=== PATIENT | female | born 1970 | race Caucasian/White ===

== ENCOUNTER 2017-12-20 10:44 | Observation (INO) | payer MEDICARE, SELFPAY ==
[2017-12-20] VITALS (13 sets, daily range): BP systolic 112–147; BP diastolic 71–105; PULSE 66–85; RESP 13–20; TEMP 36.6–36.8; O2SAT 95–99; BMI 46.7; BMI 46.1
--- NOTE | 2017-12-20 10:59 | EKG12_ITS ---
Test Reason : CP Blood Pressure : / mmHG Vent. Rate : 079 BPM Atrial Rate : 079 BPM P-R Int : 164 ms QRS Dur : 094 ms QT Int : 394 ms P-R-T Axes : 053 042 073 degrees QTc Int : 451 ms Normal sinus rhythm Biatrial enlargement Abnormal ECG Confirmed by MERCEDES RINALDI, GLENDY ([id number]), assistant film editor SAPPHIRE JIMÉNEZ ([id number]) on 12/21/2017 3:19:12 PM Referred By: FELIPE/KAYLA Confirmed By:GLENDY LONG MD
--- NOTE | 2017-12-20 11:07 | RAD_ITS ---
STUDY: X-RAY CHEST REASON FOR EXAM: Female, 47 years old. Chest pain. TECHNIQUE: Single AP portable view of the chest. COMPARISON: Comparison is made with prior study dated August 16, 2017. FINDINGS: EKG electrodes are seen. Scattered calcified granulomas. There is prominence of the left first costochondral junction. A small nodule at that level cannot be excluded. There is no demonstrated pleural abnormality. Normal size heart. Normal mediastinum and mitch. Normal visualized pulmonary arteries. Normal visualized aortic arch and descending thoracic aorta. Normal visualized thoracic spine. Normal visualized ribs, clavicles, and shoulders. There is no demonstrated abnormality of the visualized soft tissue structures of the upper abdomen. RAD/Chest 1 View (Portable) IMPRESSION: No acute abnormality is seen. There is prominence of the left first costochondral junction. A repeat radiograph in the lordotic position is recommended. Electronically Signed: Denton Philippe MD at 12:12 EDT Tel [phone], Service support ,
[2017-12-20 11:20] LABS: Absolute Lymphocyte Count 1.78 X10^3/ul (0.83-4.51); Absolute Neutrophil Count 4.6 X10^3/uL (2.0-7.7); Basophil# 0.06 X10^3/uL; Basophil% 0.8 % (0-1); Eosinophil# 0.59 X10^3/uL; Eosinophils% 7.7 % (0-5); Hematocrit 38.5 % (37-47); Hemoglobin 13.4 g/dl (12.0-15.0); Lymphocyte # 1.78 X10^3/ul (4.0); Lymphocyte % 23.4 % (19-41); Mean Corp Hgb Conc 34.8 g/gl (32-36); Mean Corpuscular Hgb 31.8 pg (27.0-32.0); Mean Corpuscular Volume 91.2 fL (81-99); Mean Platelet Vol. 9.4 fl (6.2-12.0); Monocyte# 0.52 X10^3/uL; Monocyte% 6.8 % (0-10); Neutrophil # 4.64 X10^3/uL (2.7-7.7); Neutrophil % 60.9 % (47-70); POSITIVE COUNT NO; POSITIVE DIFFERENTIAL NO; POSITIVE MORPHOLOGY NO; Platelet Count 311 K/mm3 (150-450); RBC Distribution Width CV 11.9 % (11.6-14.6); RBC Distribution Width SD 38.8 fl (35.1-43.9); Red Blood Count 4.22 M/mm3 (4.2-5.4); White Blood Count 7.6 K/mm3 (4.4-11.0)
[2017-12-20 11:33] LABS: Anion Gap 6 (5-15); BUN 20 mg/dL (7-18); Calcium,Total 8.8 mg/dL (8.5-10.1); Chloride 109 mmol/L (98-107); Creatinine, Serum 1.11 mg/dL (0.55-1.02); EST Glomerular Filtration Rate 56 mL/min (>60); Est Glom Filt Rate - Afr Amer 67 mL/min (>60); Estimated Creatinine Clearance 69.28 ml/min; Glucose 88 mg/dL (74-106); Potassium 3.8 mmol/L (3.5-5.1); Sodium Level 143 mmol/L (136-145)
--- NOTE | 2017-12-20 11:37 | ED.VISSUMM ---
- ER Visit Summary Date of Service: 12/20/17 Chief Complaint: Chest pain History of Present Illness: The patient is a 47 F presenting with chest pain. Pain started around 10 AM. She was in a car when this started. She had pain midsternal going to her back. This lasted probably 30 minutes. She has mild pain now but it has improved. She has nausea, shortness of breath. 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 Lemus. She does not have these results. These tests were ordered for frequent PVCs. She is a smoker. She has a remote history of thyroid cancer. No other PE/DVT risk factors. Physical Examination: Vitals are stable. Patient is afebrile. Alert no acute distress. HEENT exam is unremarkable. Neck is supple. Lungs are clear and equal bilaterally. Heart is regular rate and rhythm. Abdomen is soft nontender nondistended. Extremities are unremarkable. Skin is warm and dry. No focal neurologic deficit. Remainder of exam is unremarkable. Emergency Department Course and Treatment: Patient was given aspirin. EKG is sinus rate is 79 with no acute ischemic changes. CBC, chemistries unremarkable other than creatinine 1.11. Troponin is negative. D-dimer is normal. Chest x-ray shows no acute process. She is chest pain-free on reevaluation. Will discuss with the hospitalist for observation. Disposition: Observation Impression: Chest pain This note was generated with [employer] dictation software. It may contain incorrect words, spelling, and punctuation that were not noted in review of the chart prior to signing ED Disposition - Plan for ED Patient: Chief Complaint: Chest Pain Referrals: Umair Gates, CRYS-C [Primary Care Provider] -
[2017-12-20] MEDS: Aspirin 325 MG Tablet PO (11:46)
[2017-12-20 12:00] LABS: D-Dimer Quantitative (DVT/PE) 0.41 FEU/ug/m (0.27-0.49)
--- NOTE | 2017-12-20 15:25 | PCM.HP.STD ---
<Aida Dan - Last Filed: 12/20/17 16:06> Problem List (1) Anxiety disorder Status: Chronic (2) Bipolar disorder Status: Chronic (3) Asthma Status: Chronic (4) Hypothyroidism Status: Chronic (5) Chest pain Status: Acute (6) Morbid obesity with BMI of 45.0-49.9, adult Status: Chronic History of Present Illness Date of Admission: 12/20/17 Chief Complaint: Chest pain The patient is a 47 year old F who presents to the emergency room with chest pain. Patient states she was driving to [place] earlier today when she developed sudden substernal chest pain which radiated to her back. She denies radiation of pain to arm or neck. She states pain was severe and sharp in nature, generalized to the entire chest area. She reports associated shortness of breath. Denies diaphoresis, dizziness, lightheadedness. She states she has never had this sensation before. Patient states pain was constant and resolved around the time she arrived to the emergency room. She was given aspirin in the emergency room. She did not receive nitro or other pain medication. Patient states she has a history of panic attacks and this did not feel like a panic attack. She states she is undergoing workup for palpitations. She had a recent echo in 48 hour Holter monitor which she has not had a follow-up appointment to learn results. She denies any prior cardiac history. She has never had a stress test. She denies any family history of heart disease. She quit smoking approximately 4 weeks ago but states prior to that she smoked fairly heavily for over 20 years. Patient's chronic medical history includes severe anxiety disorder, bipolar disorder, asthma, hypothyroidism status post thyroidectomy secondary to thyroid cancer, morbid obesity. Past Medical History Past Medical History (Chronic Problems): Chronic Problems Anxiety disorder (Chronic) Bipolar disorder (Chronic) Asthma (Chronic) Hypothyroidism (Chronic) Morbid obesity with BMI of 45.0-49.9, adult (Chronic) Allergies No Known Allergies Allergy (Verified 12/20/17 10:45) Home Medications: Ambulatory Orders Medication Instructions Recorded ALPRAZolam [Xanax] 1 mg PO BID 04/07/16 Calcitriol [Rocaltrol] 0.5 mcg PO BID 04/07/16 Carbamazepine [Tegretol] 600 mg PO BID 04/07/16 Levothyroxine Sodium [Synthroid] 200 mcg PO SUTUTH 04/07/16 Levothyroxine Sodium [Synthroid] 300 mcg PO MOWEFRSA 04/07/16 [place] Carbonate [[place] 675 mg PO Q12H 04/07/16 Carbonate ER] Olanzapine [Zyprexa] 15 mg PO QHS 04/07/16 Paroxetine HCl [Paxil] 40 mg PO QHS 04/07/16 buPROPion SR [Wellbutrin Sr] 150 mg PO DAILY 04/07/16 Albuterol Inhaler [Ventolin Hfa] 1 - 2 puff INHALATION Q4H PRN PRN 08/16/17 #1 inhaler Cholecalciferol (Vitamin D3) 2,000 unit PO DAILY 12/20/17 [Vitamin D3] Surgical History: arthroscopy, knee - Left, cholecystectomy, - - Thyroidectomy right ankle surgery following traumatic injury Psychiatric History: Anxiety, Bipolar 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 Denies: Edema, Light Headedness, Syncope Respiratory: Denies: Cough, Shortness of breath at rest, Sputum production Gastrointestinal: Denies: Abdominal Pain, Nausea, Vomiting Genitourinary: Denies: Dysuria Musculoskeletal: Denies: Joint Pain, Joint Tenderness Skin: Denies: Rash, Wounds Neurological: Denies: Numbness, Tingling, Focal weakness Psychiatric: Reports: Anxiety Hematologic/ Lymphatic: Denies: Easy Bruising, Easy Bleeding VTE Information - Inpt Only VTE Present on Admission: No VTE Mechan Device Prophylaxis: None VTE Pharm Prophylaxis ordered?: Yes Patient Problems: Active and Suspected Problems Chest pain (Acute) - Physical Exam General: Alert, Oriented x3, Cooperative, No apparent distress HEENT: Atraumatic, PERRLA, EOMI, Normocephalic Neck: Supple, No JVD, Negative Carotid Bruits Lungs: Clear to auscultation, Diminished Cardiovascular: Regular rate, Regular Rhythm, Normal S1, Normal S2, No murmurs Abdomen: Bowel Sounds Present, Soft, Non Tender, Non-Distended, Obese Extremities: No clubbing, No cyanosis, No edema, Capillary Refill Less than 3 Seconds Skin: No rashes, No breakdown Musculoskeletal: No Tenderness to Palpation of Joints or Extremities Neurological: Cranial nerves II-XII grossly intact, Neuro grossly intact Psych/Mental Status: Normal Affect, Appropriate Vital Signs Temp Pulse Resp BP Pulse Ox 97.8 F 85 16 112/71 98 12/20/17 13:30 12/20/17 15:00 12/20/17 13:30 12/20/17 13:30 12/20/17 13:39 Oxygen Delivery Method Room Air Weight: 150.2 kg Body Mass Index (BMI) 46.1 Laboratory Tests Past 24 Hrs 12/20/17 13:40 Troponin I < 0.02 Assessment/Plan Active and Suspected Problems Chest pain (Acute) 1. Chest pain-rule out ACS. EKG in ER without evidence of ischemia. Troponin negative ?2. Trend enzymes. Patient received 325 mg aspirin in ER. Continue aspirin 81 mg daily. Obtain stress echo. Patient had recent echocardiogram and 48 hour Holter monitor at home and [place] facility. Request records. 2. Hypothyroidism-status post thyroidectomy secondary to history of thyroid cancer. Continue home Synthroid, Calcitriol regimen. 3. Anxiety disorder/bipolar disorder-continue home regimen. 4. Mild intermittent asthma-albuterol aerosol as needed for shortness of breath. 5. Morbid obesity-diet and lifestyle modifications encouraged. Nutrition consult. DVT prophylaxis-Lovenox subcu. This patient was seen by ROGERS Luciano under the supervision of Dr. Kelley. <Giovanni Kelley - Last Filed: 12/20/17 17:36> Problem List (1) Anxiety disorder Status: Chronic (2) Bipolar disorder Status: Chronic (3) Asthma Status: Chronic (4) Hypothyroidism Status: Chronic (5) Chest pain Status: Acute (6) Morbid obesity with BMI of 45.0-49.9, adult Status: Chronic History of Present Illness The patient is a 47 year old F who had chest pain today while driving to [place]. Patient stated began in her back and rated up to her front. Patient became very anxious and drove herself to [facility]. In the emergency room patient had a workup that was negative so far. Patient's chest pain resolved spontaneously. Patient has had chest pain related with panic attacks before. Usually patient has some something that incites her panic but denies anything that incited her panic today. She does know that she was concerned about traffic but there was any traffic at that time when this occurred and pain that she felt was different than when she has had panic attacks before. She did note afterwards, however, she did note some acid brash in the back of her throat. 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 Denies: Edema, Light Headedness, Syncope Respiratory: Denies: Cough, Shortness of breath at rest, Sputum production Gastrointestinal: Denies: Abdominal Pain, Nausea, Vomiting Genitourinary: Denies: Dysuria Musculoskeletal: Denies: Joint Pain, Joint Tenderness Skin: Denies: Rash, Wounds Neurological: Denies: Focal weakness, Numbness, Tingling Hematologic/ Lymphatic: Denies: Easy Bruising, Easy Bleeding VTE Information - Inpt Only VTE Present on Admission: No VTE Pharm Prophylaxis ordered?: Yes - Physical Exam General: Alert, Cooperative, No apparent distress HEENT: Atraumatic, Normocephalic Neck: No Nodes, Thyroid Normal Size and Texture Lungs: Clear to auscultation, Normal air movement, No rhonchi, No wheeze Cardiovascular: Regular rate, Regular Rhythm, Normal S1, Normal S2, No murmurs Abdomen: Bowel Sounds Present, Soft, Non Tender, Non-Distended Extremities: No edema, No Calf Tenderness Skin: No rashes, No breakdown Musculoskeletal: No Tenderness to Palpation of Joints or Extremities, No Muscle Wasting Psych/Mental Status: Normal Affect, Appropriate Vital Signs Temp Pulse Resp BP Pulse Ox 36.6 C 85 16 112/71 98 12/20/17 13:30 12/20/17 15:00 12/20/17 13:30 12/20/17 13:30 12/20/17 13:39 Oxygen Delivery Method Room Air Weight: 150.2 kg Body Mass Index (BMI) 46.1 Laboratory Tests Past 24 Hrs 12/20/17 12/20/17 13:40 16:14 Troponin I < 0.02 < 0.02 Assessment/Plan She seen and examined in family. Agree the above note by the nurse practitioner. 1. Chest pain: Atypical. Rule out cardiac with a stress test. I suspect this may be more esophageal spasm. Patient said that she had reflux one her son was a child and he is now a teenager. I do not necessarily recommend treatment for the reflux unless he becomes more frequent. If stress test is negative then anticipate patient being able to be discharged home. Code Visit OBSV E&M: 06662 Initial observation care L2
--- NOTE | 2017-12-20 15:39 | HP.PCM_ITS ---
Addendum entered and electronically signed by ROGERS Luciano 12/20/17 16:07: Code Visit Additional diagnoses: Mild elevated creatinine-creatinine admission 1.1. Patient's baseline is 1.0. Monitor BMP. Estimated GFR 56. Suspect some element of chronic kidney disease. Original Note: <Aida Dan - Last Filed: 12/20/17 16:06> Problem List (1) Anxiety disorder Status: Chronic (2) Bipolar disorder Status: Chronic (3) Asthma Status: Chronic (4) Hypothyroidism Status: Chronic (5) Chest pain Status: Acute (6) Morbid obesity with BMI of 45.0-49.9, adult Status: Chronic History of Present Illness Date of Admission: 12/20/17 Chief Complaint: Chest pain The patient is a 47 year old F who presents to the emergency room with chest pain. Patient states she was driving to [place] earlier today when she developed sudden substernal chest pain which radiated to her back. She denies radiation of pain to arm or neck. She states pain was severe and sharp in nature, generalized to the entire chest area. She reports associated shortness of breath. Denies diaphoresis, dizziness, lightheadedness. She states she has never had this sensation before. Patient states pain was constant and resolved around the time she arrived to the emergency room. She was given aspirin in the emergency room. She did not receive nitro or other pain medication. Patient states she has a history of panic attacks and this did not feel like a panic attack. She states she is undergoing workup for palpitations. She had a recent echo in 48 hour Holter monitor which she has not had a follow-up appointment to learn results. She denies any prior cardiac history. She has never had a stress test. She denies any family history of heart disease. She quit smoking approximately 4 weeks ago but states prior to that she smoked fairly heavily for over 20 years. Patient's chronic medical history includes severe anxiety disorder, bipolar disorder, asthma, hypothyroidism status post thyroidectomy secondary to thyroid cancer, morbid obesity. Past Medical History Past Medical History (Chronic Problems): Chronic Problems Anxiety disorder (Chronic) Bipolar disorder (Chronic) Asthma (Chronic) Hypothyroidism (Chronic) Morbid obesity with BMI of 45.0-49.9, adult (Chronic) Allergies No Known Allergies Allergy (Verified 12/20/17 10:45) Home Medications: Ambulatory Orders Medication Instructions Recorded ALPRAZolam [Xanax] 1 mg PO BID 04/07/16 Calcitriol [Rocaltrol] 0.5 mcg PO BID 04/07/16 Carbamazepine [Tegretol] 600 mg PO BID 04/07/16 Levothyroxine Sodium [Synthroid] 200 mcg PO SUTUTH 04/07/16 Levothyroxine Sodium [Synthroid] 300 mcg PO MOWEFRSA 04/07/16 [place] Carbonate [[place] 675 mg PO Q12H 04/07/16 Carbonate ER] Olanzapine [Zyprexa] 15 mg PO QHS 04/07/16 Paroxetine HCl [Paxil] 40 mg PO QHS 04/07/16 buPROPion SR [Wellbutrin Sr] 150 mg PO DAILY 04/07/16 Albuterol Inhaler [Ventolin Hfa] 1 - 2 puff INHALATION Q4H PRN PRN 08/16/17 #1 inhaler Cholecalciferol (Vitamin D3) 2,000 unit PO DAILY 12/20/17 [Vitamin D3] Surgical History: arthroscopy, knee - Left, cholecystectomy, - - Thyroidectomy right ankle surgery following traumatic injury Psychiatric History: Anxiety, Bipolar 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 Denies: Edema, Light Headedness, Syncope Respiratory: Denies: Cough, Shortness of breath at rest, Sputum production Gastrointestinal: Denies: Abdominal Pain, Nausea, Vomiting Genitourinary: Denies: Dysuria Musculoskeletal: Denies: Joint Pain, Joint Tenderness Skin: Denies: Rash, Wounds Neurological: Denies: Numbness, Tingling, Focal weakness Psychiatric: Reports: Anxiety Hematologic/ Lymphatic: Denies: Easy Bruising, Easy Bleeding VTE Information - Inpt Only VTE Present on Admission: No VTE Mechan Device Prophylaxis: None VTE Pharm Prophylaxis ordered?: Yes Patient Problems: Active and Suspected Problems Chest pain (Acute) - Physical Exam General: Alert, Oriented x3, Cooperative, No apparent distress HEENT: Atraumatic, PERRLA, EOMI, Normocephalic Neck: Supple, No JVD, Negative Carotid Bruits Lungs: Clear to auscultation, Diminished Cardiovascular: Regular rate, Regular Rhythm, Normal S1, Normal S2, No murmurs Abdomen: Bowel Sounds Present, Soft, Non Tender, Non-Distended, Obese Extremities: No clubbing, No cyanosis, No edema, Capillary Refill Less than 3 Seconds Skin: No rashes, No breakdown Musculoskeletal: No Tenderness to Palpation of Joints or Extremities Neurological: Cranial nerves II-XII grossly intact, Neuro grossly intact Psych/Mental Status: Normal Affect, Appropriate Vital Signs Temp Pulse Resp BP Pulse Ox 97.8 F 85 16 112/71 98 12/20/17 13:30 12/20/17 15:00 12/20/17 13:30 12/20/17 13:30 12/20/17 13:39 Oxygen Delivery Method Room Air Weight: 150.2 kg Body Mass Index (BMI) 46.1 Laboratory Tests Past 24 Hrs 12/20/17 13:40 Troponin I < 0.02 Assessment/Plan Active and Suspected Problems Chest pain (Acute) 1. Chest pain-rule out ACS. EKG in ER without evidence of ischemia. Troponin negative ?2. Trend enzymes. Patient received 325 mg aspirin in ER. Continue aspirin 81 mg daily. Obtain stress echo. Patient had recent echocardiogram and 48 hour Holter monitor at home and [place] facility. Request records. 2. Hypothyroidism-status post thyroidectomy secondary to history of thyroid cancer. Continue home Synthroid, Calcitriol regimen. 3. Anxiety disorder/bipolar disorder-continue home regimen. 4. Mild intermittent asthma-albuterol aerosol as needed for shortness of breath. 5. Morbid obesity-diet and lifestyle modifications encouraged. Nutrition consult. DVT prophylaxis-Lovenox subcu. This patient was seen by ROGERS Luciano under the supervision of Dr. Kelley. <Giovanni Kelley - Last Filed: 12/20/17 17:36> Problem List (1) Anxiety disorder Status: Chronic (2) Bipolar disorder Status: Chronic (3) Asthma Status: Chronic (4) Hypothyroidism Status: Chronic (5) Chest pain Status: Acute (6) Morbid obesity with BMI of 45.0-49.9, adult Status: Chronic History of Present Illness The patient is a 47 year old F who had chest pain today while driving to [place]. Patient stated began in her back and rated up to her front. Patient became very anxious and drove herself to [facility]. In the emergency room patient had a workup that was negative so far. Patient's chest pain resolved spontaneously. Patient has had chest pain related with panic attacks before. Usually patient has some something that incites her panic but denies anything that incited her panic today. She does know that she was concerned about traffic but there was any traffic at that time when this occurred and pain that she felt was different than when she has had panic attacks before. She did note afterwards, however, she did note some acid brash in the back of her throat. 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 Denies: Edema, Light Headedness, Syncope Respiratory: Denies: Cough, Shortness of breath at rest, Sputum production Gastrointestinal: Denies: Abdominal Pain, Nausea, Vomiting Genitourinary: Denies: Dysuria Musculoskeletal: Denies: Joint Pain, Joint Tenderness Skin: Denies: Rash, Wounds Neurological: Denies: Focal weakness, Numbness, Tingling Hematologic/ Lymphatic: Denies: Easy Bruising, Easy Bleeding VTE Information - Inpt Only VTE Present on Admission: No VTE Pharm Prophylaxis ordered?: Yes - Physical Exam General: Alert, Cooperative, No apparent distress HEENT: Atraumatic, Normocephalic Neck: No Nodes, Thyroid Normal Size and Texture Lungs: Clear to auscultation, Normal air movement, No rhonchi, No wheeze Cardiovascular: Regular rate, Regular Rhythm, Normal S1, Normal S2, No murmurs Abdomen: Bowel Sounds Present, Soft, Non Tender, Non-Distended Extremities: No edema, No Calf Tenderness Skin: No rashes, No breakdown Musculoskeletal: No Tenderness to Palpation of Joints or Extremities, No Muscle Wasting Psych/Mental Status: Normal Affect, Appropriate Vital Signs Temp Pulse Resp BP Pulse Ox 36.6 C 85 16 112/71 98 12/20/17 13:30 12/20/17 15:00 12/20/17 13:30 12/20/17 13:30 12/20/17 13:39 Oxygen Delivery Method Room Air Weight: 150.2 kg Body Mass Index (BMI) 46.1 Laboratory Tests Past 24 Hrs 12/20/17 12/20/17 13:40 16:14 Troponin I < 0.02 < 0.02 Assessment/Plan She seen and examined in family. Agree the above note by the nurse practitioner. 1. Chest pain: Atypical. Rule out cardiac with a stress test. I suspect this may be more esophageal spasm. Patient said that she had reflux one her son was a child and he is now a teenager. I do not necessarily recommend treatment for the reflux unless he becomes more frequent. If stress test is negative then anticipate patient being able to be discharged home. Code Visit OBSV E&M: 89390 Initial observation care L2
[2017-12-20] MEDS: OLANZapine 10 MG Tablet PO (21:27)
[2017-12-20] MEDS: PARoxetine 10 MG Tablet 40 MG PO (21:28)
[2017-12-20] MEDS: Calcitriol 0.25 MCG Capsule 0.5 MCG PO (21:28)
[2017-12-20] MEDS: carBAMazepine 200 MG Tablet 400 MG PO (21:28)
[2017-12-20] MEDS: Polyethylene Glycol 3350 17 GM PACKET PO (21:35)
[2017-12-20] MEDS: 0.9% NaCl Peripheral Flush Adult/Peds IV (21:37)
[2017-12-21] VITALS (7 sets, daily range): BP systolic 126–156; BP diastolic 68–99; PULSE 62–83; RESP 14–20; TEMP 36.6–36.9; O2SAT 94–99
[2017-12-21] MEDS: ALPRAZolam 0.5 MG Tablet 1 MG PO (03:37)
--- NOTE | 2017-12-21 05:55 | STEWCON_ITS ---
Reason For Study: Chest pain Stress Results Protocol: Stress Echocardiogram Maximum Predicted HR: 172 bpm Target HR: 146 bpm% Maximum Pr edicted HR: 81 % DurationHeart Rate Stage (mm:ss) (bpm) BPCom ment BASELINE 85 125/86 DEFINITY 2 ML DILUTED USED DURING STRESS EZEQUIEL PROTOCOL- STAGE 1 3:00 12 2 130/84 EZEQUIEL PROTOCOL- STAGE 2 3:00 14 0 150/90 RECOVERY 93 136/90 Stress Duration: 6:00 mm:ss Maximum Stress HR: 140 bpmM ETS: 7 Baseline Echocardiogram Findings Stress Echo Wall motion Data Resting WMIntermediate WMStress WM Resting Wall Motion Wall Motion Stress All segments Normal. All segments Hyperkinetic. Ejection Fraction 55 %. Ejection Fraction 70 %. Stress Results Heart rate response: technically inadequate (%PMHR < 85%) Blood pressure response: normal resting BP - appropriate response Arrhythmias: occcasional PVCs pretest, frequent PVCs during exercise, occasional PVCs in recovery; intermittent ventricular bigeminey during exercise and recovery; intermittent ventricular trigeminey / quadrageminey during recovery Functional capacity: average Stopped secondary to: dyspnea. EKG Data Baseline ECG: NSR; occasional PVCs. Peak exercise ECG: no obvious ECG changes. Symptoms with Stress No c/o chest discomfort during exercise / recovery. Interpretation Summary The study was technically difficult. Contrast injection was performed. Negative (technically inadequate: %PMHR < 85%) Stress Echocardiogram Ordering Physician: Giovanni Kelley Referring Physician: Umair Gates NP Performed By: Patsy Davis RDCS
--- NOTE | 2017-12-21 05:55 | EKG12_ITS ---
Test Reason : AM EKG Blood Pressure : / mmHG Vent. Rate : 093 BPM Atrial Rate : 093 BPM P-R Int : 168 ms QRS Dur : 092 ms QT Int : 366 ms P-R-T Axes : 054 027 072 degrees QTc Int : 455 ms Sinus rhythm with frequent Premature ventricular complexes in a pattern of bigeminy Biatrial enlargement Abnormal ECG When compared with ECG of 20-DEC-2017 10:51, MANUAL COMPARISON REQUIRED, DATA IS UNCONFIRMED Confirmed by MERRICK AGEE ([id number]), proposal editor SAPPHIRE JIMÉNEZ ([id number]) on 12/23/2017 3:18:04 PM Referred By: DR MADRIGAL Confirmed By:MERRICK AGEE
[2017-12-21 06:00] LABS: Absolute Lymphocyte Count 1.78 X10^3/ul (0.83-4.51); Absolute Neutrophil Count 6.1 X10^3/uL (2.0-7.7); Basophil# 0.04 X10^3/uL; Basophil% 0.4 % (0-1); Eosinophil# 0.63 X10^3/uL; Eosinophils% 6.9 % (0-5); Hematocrit 42.1 % (37-47); Lymphocyte # 1.78 X10^3/ul (4.0); Lymphocyte % 19.5 % (19-41); Mean Corp Hgb Conc 33.3 g/gl (32-36); Mean Corpuscular Hgb 30.2 pg (27.0-32.0); Mean Corpuscular Volume 90.7 fL (81-99); Mean Platelet Vol. 9.4 fl (6.2-12.0); Monocyte# 0.56 X10^3/uL; Monocyte% 6.1 % (0-10); Neutrophil # 6.08 X10^3/uL (2.7-7.7); Neutrophil % 66.7 % (47-70); Platelet Count 300 K/mm3 (150-450); RBC Distribution Width CV 12.4 % (11.6-14.6); RBC Distribution Width SD 40.6 fl (35.1-43.9); Red Blood Count 4.64 M/mm3 (4.2-5.4); White Blood Count 9.1 K/mm3 (4.4-11.0)
[2017-12-21 06:07] LABS: Prothrombin Time (Protime)PT. 12.7 SECONDS (11.7-14.9)
[2017-12-21 06:08] LABS: Partial Thromboplast Time 30.5 Seconds (24.1-36.2)
[2017-12-21] MEDS: Aspirin E.C. 81 MG Tablet PO (06:08)
[2017-12-21 06:09] LABS: POSITIVE COUNT NO; POSITIVE DIFFERENTIAL NO; POSITIVE MORPHOLOGY NO
[2017-12-21] MEDS: Levothyroxine 100 MCG Tablet 200 MCG PO (06:09)
[2017-12-21 06:13] LABS: Anion Gap 7 (5-15); BUN 19 mg/dL (7-18); BUN/Creat Ratio 17.3 RATIO (10-20); Calcium,Total 9.1 mg/dL (8.5-10.1); Chloride 109 mmol/L (98-107); EST Glomerular Filtration Rate 56 mL/min (>60); Est Glom Filt Rate - Afr Amer 68 mL/min (>60); Estimated Creatinine Clearance 69.91 ml/min; Glucose 108 mg/dL (74-106); Potassium 3.9 mmol/L (3.5-5.1); Sodium Level 143 mmol/L (136-145)
[2017-12-21] MEDS: Polyethylene Glycol 3350 17 GM PACKET PO (11:06)
[2017-12-21] MEDS: Calcitriol 0.25 MCG Capsule 0.5 MCG PO (11:06)
[2017-12-21] MEDS: carBAMazepine 200 MG Tablet 600 MG PO (11:07)
[2017-12-21] MEDS: buPROPion (SR) 150 MG Tablet.SA PO (11:07)
--- NOTE | 2017-12-21 13:11 | PCM.DC ---
- Discharge Diagnoses Current Active Problems: Current Active and Chronic Problems Anxiety disorder (Chronic) Bipolar disorder (Chronic) Asthma (Chronic) Hypothyroidism (Chronic) Chest pain (Acute) Morbid obesity with BMI of 45.0-49.9, adult (Chronic) You will use the following diet at home:: Calorie/Carbohydrate Controlled (specify 1200, 1400, etc), Cardiac Discharge Activity: Return to Normal Activity Call your doctor if you observe: Shortness of breath, Dizziness, Fainting spells, Chest pain, Increased palpitations (irregular heartbeat) Allergies/Adverse Reactions: Allergies No Known Allergies Allergy (Verified 12/20/17 10:45) Medications to take at Discharge ALPRAZolam [Xanax] 1 mg PO BID 04/07/16 Calcitriol [Rocaltrol] 0.5 mcg PO BID 04/07/16 Carbamazepine [Tegretol] 600 mg PO BID 04/07/16 Levothyroxine Sodium [Synthroid] 200 mcg PO SUTUTH 04/07/16 Levothyroxine Sodium [Synthroid] 300 mcg PO MOWEFRSA 04/07/16 [place] Carbonate [[place] Carbonate ER] 675 mg PO Q12H 04/07/16 Olanzapine [Zyprexa] 15 mg PO QHS 04/07/16 Paroxetine HCl [Paxil] 40 mg PO QHS 04/07/16 buPROPion SR [Wellbutrin SR (150mg tablets)] 150 mg PO DAILY 04/07/16 Albuterol Inhaler [Ventolin Hfa] 1 - 2 puff INHALATION Q4H PRN PRN #1 inhaler 08/16/17 Cholecalciferol (Vitamin D3) [Vitamin D3] 2,000 unit PO DAILY 12/20/17 Primary Care Physician: Umair Gates NP-C [Primary Care Provider] - Please follow up with your Primary Care Physician in: 1 Week Proposed Discharge Date: 12/21/17
--- NOTE | 2017-12-21 13:14 | DCINST_ITS ---
- Discharge Diagnoses Current Active Problems: Current Active and Chronic Problems Anxiety disorder (Chronic) Bipolar disorder (Chronic) Asthma (Chronic) Hypothyroidism (Chronic) Chest pain (Acute) Morbid obesity with BMI of 45.0-49.9, adult (Chronic) You will use the following diet at home:: Calorie/Carbohydrate Controlled ( specify 1200, 1400, etc), Cardiac Discharge Activity: Return to Normal Activity Call your doctor if you observe: Shortness of breath, Dizziness, Fainting spells , Chest pain, Increased palpitations (irregular heartbeat) Allergies/Adverse Reactions: Allergies No Known Allergies Allergy (Verified 12/20/17 10:45) Medications to take at Discharge ALPRAZolam [Xanax] 1 mg PO BID 04/07/16 Calcitriol [Rocaltrol] 0.5 mcg PO BID 04/07/16 Carbamazepine [Tegretol] 600 mg PO BID 04/07/16 Levothyroxine Sodium [Synthroid] 200 mcg PO SUTUTH 04/07/16 Levothyroxine Sodium [Synthroid] 300 mcg PO MOWEFRSA 04/07/16 [place] Carbonate [[place] Carbonate ER] 675 mg PO Q12H 04/07/16 Olanzapine [Zyprexa] 15 mg PO QHS 04/07/16 Paroxetine HCl [Paxil] 40 mg PO QHS 04/07/16 buPROPion SR [Wellbutrin SR (150mg tablets)] 150 mg PO DAILY 04/07/16 Albuterol Inhaler [Ventolin Hfa] 1 - 2 puff INHALATION Q4H PRN PRN #1 inhaler Cholecalciferol (Vitamin D3) [Vitamin D3] 2,000 unit PO DAILY 12/20/17 Primary Care Physician: Umair Gates NP-C [Primary Care Provider] - Please follow up with your Primary Care Physician in: 1 Week Proposed Discharge Date: 12/21/17
--- NOTE | 2017-12-21 13:14 | PCM.DC.SUM ---
<Aida Dan - Last Filed: 12/21/17 13:42> Discharge Date and Diagnosis Date of Admission: 12/20/17 Date of Discharge: 12/21/17 - Primary Discharge Diagnosis Active and Suspected Problems 1. Chest pain- ACS ruled out. - Secondary Discharge Diagnosis Chronic Problems Anxiety disorder (Chronic) Bipolar disorder (Chronic) Asthma (Chronic) Hypothyroidism (Chronic) Morbid obesity with BMI of 45.0-49.9, adult (Chronic) Hospital Course and Treatment Imaging Results: Diagnostic Data Chest X-Ray 12/20/17 11:07 IMPRESSION: No acute abnormality is seen. There is prominence of the left first costochondral junction. A repeat radiograph in the lordotic position is recommended. Electronically Signed: Denton Philippe MD at 12:12 EDT Tel [phone], Service support , Operations: None Procedures: - - Stress echo Summary of Care Provided: Patient is a 47-year-old female admitted 12/20/17 due to chest pain. Patient's chronic medical history includes severe anxiety disorder, bipolar disorder, asthma, hypothyroidism status post thyroidectomy secondary to thyroid cancer, morbid obesity. 1. Chest pain-ACS ruled out. EKG in ER without evidence of ischemia. Troponin negative ?3. Patient completed stress echo which was negative for ischemia with an ejection fraction of 55%. Suspect possible esophageal spasm. Patient may started on PPI if symptoms become more frequent. 2. Hypothyroidism-status post thyroidectomy secondary to history of thyroid cancer. Continue home Synthroid, Calcitriol regimen. 3. Anxiety disorder/bipolar disorder-continue home regimen. 4. Mild intermittent asthma-albuterol aerosol as needed for shortness of breath. 5. Morbid obesity-diet and lifestyle modifications encouraged. Nutrition consult. General: Alert, Oriented x3, Cooperative, No apparent distress HEENT: Atraumatic, PERRLA, EOMI, Normocephalic Neck: Supple, No JVD, Negative Carotid Bruits Lungs: Clear to auscultation, Diminished Cardiovascular: Regular rate, Regular Rhythm, Normal S1, Normal S2, No murmurs Abdomen: Bowel Sounds Present, Soft, Non Tender, Non-Distended, Obese Extremities: No clubbing, No cyanosis, No edema, Capillary Refill Less than 3 Seconds Skin: No rashes, No breakdown Musculoskeletal: No Tenderness to Palpation of Joints or Extremities Neurological: Cranial nerves II-XII grossly intact, Neuro grossly intact Psych/Mental Status: Normal Affect, Appropriate Patient seen and examined prior to discharge. Physical assessment as noted above. Patient denies further chest pain. Stable for discharge with follow-up with primary care physician in 1 week. This patient was seen by ROGERS Luciano under the supervision of Dr. Kelley. Discharge Diet: 1800 Calorie Control Diet Discharge Activity: Return to Normal Activity Call your doctor if you observe: Shortness of breath, Dizziness, Fainting spells, Chest pain, Increased palpitations (irregular heartbeat) Home Medications: Medications to take at Discharge ALPRAZolam [Xanax] 1 mg PO BID 04/07/16 Calcitriol [Rocaltrol] 0.5 mcg PO BID 04/07/16 Carbamazepine [Tegretol] 600 mg PO BID 04/07/16 Levothyroxine Sodium [Synthroid] 200 mcg PO SUTUTH 04/07/16 Levothyroxine Sodium [Synthroid] 300 mcg PO MOWEFRSA 04/07/16 [place] Carbonate [[place] Carbonate ER] 675 mg PO Q12H 04/07/16 Olanzapine [Zyprexa] 15 mg PO QHS 04/07/16 Paroxetine HCl [Paxil] 40 mg PO QHS 04/07/16 buPROPion SR [Wellbutrin SR (150mg tablets)] 150 mg PO DAILY 04/07/16 Albuterol Inhaler [Ventolin Hfa] 1 - 2 puff INHALATION Q4H PRN PRN #1 inhaler 08/16/17 Cholecalciferol (Vitamin D3) [Vitamin D3] 2,000 unit PO DAILY 12/20/17 Primary Care Physician: Umair Gates NP-C [Primary Care Provider] - Please follow up with your Primary Care Physician in: 1 Week Disposition: Home Minutes spent on discharge:: 35 Patient Condition:: Stable Medical Necessity - Tobacco Use Smoking Status: Former smoker Meaningful Use Info Meaningful Use Diagnoses (Choose all that apply): None applicable <Giovanni Kelley - Last Filed: 12/21/17 14:44> Discharge Date and Diagnosis - Secondary Discharge Diagnosis Chronic Problems Anxiety disorder (Chronic) Bipolar disorder (Chronic) Asthma (Chronic) Hypothyroidism (Chronic) Morbid obesity with BMI of 45.0-49.9, adult (Chronic) Hospital Course and Treatment Imaging Results: 12/21/17 05:55 Stress Test Echo W/Contrast [ECHO] AM (NON MEDS) Operations: None Procedures: Stress test Summary of Care Provided: She is seen and examined in family. Agree with the above note by the nurse practitioner. This is a 39-year-old white female presents with chest pain. Patient had some acid brash associated with this. Is felt that this was noncardiac initially patient was brought in. Patient underwent stress test that was negative. Is my feeling the patient likely had an esophageal spasm possibly induced by some reflux. Patient has very infrequent episodes of reflux and heartburn and therefore I do not recommend any PPI therapy or H2 sonali therapy at this time. [] Medical Necessity - Tobacco Use Smoking Status: Former smoker Meaningful Use Info Meaningful Use Diagnoses (Choose all that apply): None applicable Code Visit OBSV E&M: 38903 Observation care discharge
--- NOTE | 2017-12-21 13:17 | DS.PCM_ITS ---
<Aida Dan - Last Filed: 12/21/17 13:42> Discharge Date and Diagnosis Date of Admission: 12/20/17 Date of Discharge: 12/21/17 - Primary Discharge Diagnosis Active and Suspected Problems 1. Chest pain- ACS ruled out. - Secondary Discharge Diagnosis Chronic Problems Anxiety disorder (Chronic) Bipolar disorder (Chronic) Asthma (Chronic) Hypothyroidism (Chronic) Morbid obesity with BMI of 45.0-49.9, adult (Chronic) Hospital Course and Treatment Imaging Results: Diagnostic Data Chest X-Ray 12/20/17 11:07 IMPRESSION: No acute abnormality is seen. There is prominence of the left first costochondral junction. A repeat radiograph in the lordotic position is recommended. Electronically Signed: Denton Philippe MD at 12:12 EDT Tel [phone], Service support , Operations: None Procedures: - - Stress echo Summary of Care Provided: Patient is a 47-year-old female admitted 12/20/17 due to chest pain. Patient's chronic medical history includes severe anxiety disorder, bipolar disorder, asthma, hypothyroidism status post thyroidectomy secondary to thyroid cancer, morbid obesity. 1. Chest pain-ACS ruled out. EKG in ER without evidence of ischemia. Troponin negative ?3. Patient completed stress echo which was negative for ischemia with an ejection fraction of 55%. Suspect possible esophageal spasm. Patient may started on PPI if symptoms become more frequent. 2. Hypothyroidism-status post thyroidectomy secondary to history of thyroid cancer. Continue home Synthroid, Calcitriol regimen. 3. Anxiety disorder/bipolar disorder-continue home regimen. 4. Mild intermittent asthma-albuterol aerosol as needed for shortness of breath. 5. Morbid obesity-diet and lifestyle modifications encouraged. Nutrition consult. General: Alert, Oriented x3, Cooperative, No apparent distress HEENT: Atraumatic, PERRLA, EOMI, Normocephalic Neck: Supple, No JVD, Negative Carotid Bruits Lungs: Clear to auscultation, Diminished Cardiovascular: Regular rate, Regular Rhythm, Normal S1, Normal S2, No murmurs Abdomen: Bowel Sounds Present, Soft, Non Tender, Non-Distended, Obese Extremities: No clubbing, No cyanosis, No edema, Capillary Refill Less than 3 Seconds Skin: No rashes, No breakdown Musculoskeletal: No Tenderness to Palpation of Joints or Extremities Neurological: Cranial nerves II-XII grossly intact, Neuro grossly intact Psych/Mental Status: Normal Affect, Appropriate Patient seen and examined prior to discharge. Physical assessment as noted above. Patient denies further chest pain. Stable for discharge with follow-up with primary care physician in 1 week. This patient was seen by ROGERS Luciano under the supervision of Dr. Kelley. Discharge Diet: 1800 Calorie Control Diet Discharge Activity: Return to Normal Activity Call your doctor if you observe: Shortness of breath, Dizziness, Fainting spells , Chest pain, Increased palpitations (irregular heartbeat) Home Medications: Medications to take at Discharge ALPRAZolam [Xanax] 1 mg PO BID 04/07/16 Calcitriol [Rocaltrol] 0.5 mcg PO BID 04/07/16 Carbamazepine [Tegretol] 600 mg PO BID 04/07/16 Levothyroxine Sodium [Synthroid] 200 mcg PO SUTUTH 04/07/16 Levothyroxine Sodium [Synthroid] 300 mcg PO MOWEFRSA 04/07/16 [place] Carbonate [[place] Carbonate ER] 675 mg PO Q12H 04/07/16 Olanzapine [Zyprexa] 15 mg PO QHS 04/07/16 Paroxetine HCl [Paxil] 40 mg PO QHS 04/07/16 buPROPion SR [Wellbutrin SR (150mg tablets)] 150 mg PO DAILY 04/07/16 Albuterol Inhaler [Ventolin Hfa] 1 - 2 puff INHALATION Q4H PRN PRN #1 inhaler Cholecalciferol (Vitamin D3) [Vitamin D3] 2,000 unit PO DAILY 12/20/17 Primary Care Physician: Umair Gates NP-C [Primary Care Provider] - Please follow up with your Primary Care Physician in: 1 Week Disposition: Home Minutes spent on discharge:: 35 Patient Condition:: Stable Medical Necessity - Tobacco Use Smoking Status: Former smoker Meaningful Use Info Meaningful Use Diagnoses (Choose all that apply): None applicable <Giovanni Kelley - Last Filed: 12/21/17 14:44> Discharge Date and Diagnosis - Secondary Discharge Diagnosis Chronic Problems Anxiety disorder (Chronic) Bipolar disorder (Chronic) Asthma (Chronic) Hypothyroidism (Chronic) Morbid obesity with BMI of 45.0-49.9, adult (Chronic) Hospital Course and Treatment Imaging Results: 12/21/17 05:55 Stress Test Echo W/Contrast [ECHO] AM (NON MEDS) Operations: None Procedures: Stress test Summary of Care Provided: She is seen and examined in family. Agree with the above note by the nurse practitioner. This is a 39-year-old white female presents with chest pain. Patient had some acid brash associated with this. Is felt that this was noncardiac initially patient was brought in. Patient underwent stress test that was negative. Is my feeling the patient likely had an esophageal spasm possibly induced by some reflux. Patient has very infrequent episodes of reflux and heartburn and therefore I do not recommend any PPI therapy or H2 sonali therapy at this time. [] Medical Necessity - Tobacco Use Smoking Status: Former smoker Meaningful Use Info Meaningful Use Diagnoses (Choose all that apply): None applicable Code Visit OBSV E&M: 15052 Observation care discharge
== END 2017-12-21 13:13 | disposition home or self-care (01) ==
LOC: ED 12:25 → PCU 13:21
PROVIDERS: Family Medicine; Emergency Provider Emergency Medicine; Family Provider Nurse Practitioner Family; PCP Nurse Practitioner Family
DX: R07.89 Other chest pain (principal); F31.9 Bipolar disorder, unspecified; E66.01 Morbid (severe) obesity due to excess calories; Z68.42 Body mass index [BMI] 45.0-49.9, adult; Z71.3 Dietary counseling and surveillance; F41.9 Anxiety disorder, unspecified; Z85.850 Personal history of malignant neoplasm of thyroid; Z87.891 Personal history of nicotine dependence; E89.0 Postprocedural hypothyroidism; J45.20 Mild intermittent asthma, uncomplicated; Z79.899 Other long term (current) drug therapy
CPT/HCPCS: 36415; 71045; 80048; 83735; 84484; 85025; 85379; 85610; 85730; 93005; 93017; 93350; 99218; 99285; Q9957; A4216; C8928; G0378

== ENCOUNTER → 2019-01-10 08:53 | Outpatient (CLI) | payer MEDICARE, SELFPAY ==
--- NOTE | 2019-01-10 08:57 | RAD_ITS ---
STUDY: X-RAY - RIGHT KNEE REASON FOR EXAM: Pain. TECHNIQUE: 4 view(s) of the knee. COMPARISON: None. FINDINGS: Normal visualized distal femur. Normal visualized proximal tibia and fibula. Normal proximal tibiofibular articulation. There is mild joint space narrowing of the medial femorotibial compartment. Normal lateral femorotibial compartment. There are small marginal osteophytes and mild joint space narrowing of the patellofemoral articulation. The soft tissue structures are unremarkable. RAD/Knee 4 or More Views IMPRESSION: Mild arthrosis of the medial femorotibial and patellofemoral compartments. Electronically Signed: Tristian Archer MD at 11:42 EDT Tel , Service support ,
--- NOTE | 2019-01-10 08:57 | RAD_ITS ---
STUDY: X-RAY - LEFT KNEE REASON FOR EXAM: Pain. TECHNIQUE: 4 view(s) of the knee. COMPARISON: None. FINDINGS: Normal visualized distal femur. Normal visualized proximal tibia and fibula. Normal proximal tibiofibular articulation. There is severe joint space narrowing of the medial femorotibial compartment. Normal lateral femorotibial compartment. There are small marginal osteophytes without joint space narrowing of the patellofemoral articulation. The soft tissue structures are unremarkable. RAD/Knee 4 or More Views IMPRESSION: Arthrosis of the medial femorotibial compartment. Electronically Signed: Tristian Archer MD at 11:41 EDT Tel , Service support ,
== END ==
PROVIDERS: Family Provider Nurse Practitioner Family; PCP Nurse Practitioner Family; Referring Provider Orthopaedic Surgery; Visit Provider Orthopaedic Surgery
DX: M25.562 Pain in left knee (principal); M25.561 Pain in right knee
CPT/HCPCS: 73564

== ENCOUNTER 2019-03-08 13:30 | Outpatient (RCR) | payer MEDICARE, SELFPAY ==
--- NOTE | 2019-01-16 08:12 | HP.PTEVAL_ITS ---
Patient's Visit Information NATALIYA TRACEY is a 48 year old F referred to Physical Therapy by Otilia Martines DO with a diagnosis of Bilateral Knee OA, Deconditioning.. Date of Evaluation: 01/16/19 Physical Therapist: Donna Magallanes DPT - Visit Plan Frequency: 2x /Week Duration: 4 Weeks Plan: Aquatic Therapy- focus on LE and core strength/stabilization and home exercise program for pt to continue with H&W - Subjective Findings: Patient reports hole in her left knee cap- had a Cortisone injection last week- the medial side which has helped but its not 100%. Had surgery [address] Holden- did a micro and she could not walk for a long time. Works at [employer] so she is standing on her feet for long periods of time. Does have to sit down to give her leg a break throughout the day. Pain is located al toni the medial joint line and the patella. When she is not working she walks at least a mile a day but tries not to do hills. Agg: standing, hills, twisting wrong Worst: 10/10 prior to injection but now 4-5/10. Best: 3/10 Eases: rest or sitting down. Pain radiates into the thigh- that is more tingling. The knee is sharp like a knife is going through it. Feels like the knee is coming apart. They want her to have knee replacement but she has to lose 40lbs. They took x- rays and they are a mess- no MRI at this time. Sleep: disturbed- hard to get comfortable juvenal after working all day. PMHx/Meds: no changes since saw MD. - Objective Posture: FH, RS, increased kyphosis- can correct with VC's but does not maintain- pt is overweight. Gait: slightly antalgic- decreased stance on the left LE with poor heel/toe pattern. Stairs: asc/desc 8 recip with significant UE use for propulsion and uncontrolled descent. HR/TR: able with UE A. SLS: can weight shift fully but does not take hands off wall. Palpation: tender along medial joint line and superior patella. ROM: 0-115 degrees with pain at end ranges. Strength: Ankle: 5/5, Knee: 4/5, Hip: 4/5 throughout Core: fair minus. Flex: HS: moderate, Gastroc: moderate - Goals Goal 1:: Patient will be I with HEP and progression Goal Time Frame: 4-6 Weeks Goal 2:: Patient will asc/desc 8 stairs recip with 1 HR and good control Goal Time Frame: 4-6 Weeks Goal 3:: Patient will demo 5/5 strength in LE Goal Time Frame: 4-6 Weeks Goal 4:: Patient will report sleeping through the night for 1 week with no knee pain Goal Time Frame: 4-6 Weeks - Rehabilitation Potential Physical Therapy Diagnosis: Patient presents with hypomobility- she has decreased ROM, strength and muscular endurance leading to poor gait and decreased ability to perform painfree ADL's. Rehabilitation Potential: Fair - Anticipated Interventions Patient/Client Instruction: Educate patient on: Benefits of Fitness Program Therapeutic Exercise to Include: Strength training, Endurance training, Balance training, Agility training, Body mechanics, Postural training, Flexibilty training, Gait and locomotor training, Neuromotor development, In an aquatic setting, Dynamic Lumbar Stabilization For the Purpose of:: To improve muscle performance and motor function Thank you for the opportunity to evaluate your patient. For Medicare and Medicare HMO plans, please review the plan of care and approve it. It will need to be FAXED BACK to us at [phone] for Medicare purposes. For Medicare only, by signing this I certify the plan of care. Please let me know if there are questions or concerns regarding this plan of care. Physician Signature: Date:
== END 2019-03-08 19:00 | disposition home or self-care (01) ==
LOC: PT 13:30
PROVIDERS: Family Provider Nurse Practitioner Family; PCP Nurse Practitioner Family; Referring Provider Orthopaedic Surgery; Visit Provider Orthopaedic Surgery
DX: M17.0 Bilateral primary osteoarthritis of knee (principal); R53.81 Other malaise
CPT/HCPCS: 97113; 97161

== ENCOUNTER → 2019-03-29 11:57 | Outpatient (CLI) | payer MEDICARE, SELFPAY ==
[2019-03-29 13:09] LABS: Albumin, Serum 3.6 g/dL (3.2-5.0); BUN 13 mg/dL (7-18); BUN/Creat Ratio 12.7 RATIO (10-20); Calcium,Total 9.7 mg/dL (8.5-10.1); Chloride 107 mmol/L (98-107); Creatinine, Serum 1.02 mg/dL (0.55-1.02); EST Glomerular Filtration Rate 61 mL/min (>60); Est Glom Filt Rate - Afr Amer 74 mL/min (>60); Glucose 81 mg/dL (74-106); Phosphorus 3.6 mg/dL (2.5-4.9); Sodium Level 142 mmol/L (136-145)
[2019-03-29 13:28] LABS: PTHIN 4.6 pg/mL (18.4-80.1)
[2019-03-30 14:06] LABS: AST(SGOT) 18 U/L (15-37); Alanine Aminotransfer ALT/SGPT 22 U/L (13-56); Albumin, Serum 3.7 g/dL (3.2-5.0); Alkaline Phosphatase 50 U/L (45-117); Bilirubin, Direct 0.12 mg/dL (0.00-0.30); Globulin 3.6 g/dL (2.2-4.2); Protein, Total 7.3 g/dL (6.4-8.2)
== END ==
PROVIDERS: Family Provider Nurse Practitioner Family; PCP Nurse Practitioner Family; Visit Provider Internal Medicine Nephrology
DX: N18.3 Chronic kidney disease, stage 3 (moderate) (principal); F31.9 Bipolar disorder, unspecified; E20.8 Other hypoparathyroidism
CPT/HCPCS: 36415; 80069; 80076; 80178; 83970

== ENCOUNTER → 2019-05-09 13:43 | Outpatient (CLI) | payer MEDICARE, SELFPAY ==
[2019-05-09 15:19] LABS: Albumin, Serum 3.1 g/dL (3.2-5.0); BUN 18 mg/dL (7-18); BUN/Creat Ratio 15.1 RATIO (10-20); Calcium,Total 8.7 mg/dL (8.5-10.1); Chloride 110 mmol/L (98-107); Creatinine, Serum 1.19 mg/dL (0.55-1.02); EST Glomerular Filtration Rate 51 mL/min (>60); Est Glom Filt Rate - Afr Amer 62 mL/min (>60); Glucose 82 mg/dL (74-106); Phosphorus 3.6 mg/dL (2.5-4.9); Potassium 3.8 mmol/L (3.5-5.1); Sodium Level 144 mmol/L (136-145)
== END ==
PROVIDERS: Family Provider Nurse Practitioner Family; PCP Nurse Practitioner Family; Visit Provider Internal Medicine Nephrology
DX: N18.3 Chronic kidney disease, stage 3 (moderate) (principal)
CPT/HCPCS: 36415; 80069

== ENCOUNTER → 2020-01-03 11:15 | Outpatient (CLI) | payer MEDICARE, MEDICAID, SELFPAY ==
[2019-08-21 08:08] VITALS: BMI 46.1
[2020-01-03 12:17] LABS: Absolute Lymphocyte Count 1.92 X10^3/uL (0.83-4.51); Absolute Neutrophil Count 5.3 X10^3/uL (2.0-7.7); Basophil# 0.07 X10^3/uL; Basophil% 0.9 % (0-1); Eosinophil# 0.23 X10^3/uL; Eosinophils% 2.9 % (0-5); Hematocrit 43.1 % (37-47); Hemoglobin 14.4 g/dL (12.0-15.0); Lymphocyte # 1.92 X10^3/ul (4.0); Mean Corp Hgb Conc 33.4 g/dL (32-36); Mean Corpuscular Hgb 31.4 pg (27.0-32.0); Mean Corpuscular Volume 93.9 fL (81-99); Monocyte# 0.41 X10^3/uL; Monocyte% 5.1 % (0-10); NRBC Flagged by Analyzer 0 % (0-5); Neutrophil # 5.32 X10^3/uL (2.7-7.7); Neutrophil % 66.5 % (47-70); Platelet Count 314 K/mm3 (150-450); RBC Distribution Width SD 41.5 fl (35.1-43.9); Red Blood Count 4.59 M/mm3 (4.2-5.4)
[2020-01-03 12:30] LABS: ALB/GLOB Ratio 0.9 RATIO (0.9-2.4); AST(SGOT) 16 U/L (15-37); Alanine Aminotransfer ALT/SGPT 23 U/L (13-56); Albumin, Serum 3.3 g/dL (3.2-5.0); Alkaline Phosphatase 57 U/L (45-117); Anion Gap 4 (5-15); BUN 20 mg/dL (7-18); BUN/Creat Ratio 16.3 RATIO (10-20); Calcium,Total 9.8 mg/dL (8.5-10.1); Chloride 109 mmol/L (98-107); Cholesterol 208 mg/dL (200); Creatinine, Serum 1.23 mg/dL (0.55-1.02); EST Glomerular Filtration Rate 49 mL/min (>60); Est Glom Filt Rate - Afr Amer 59 mL/min (>60); Globulin 3.8 g/dL (2.2-4.2); Glucose 110 mg/dL (74-106); High Density Lipoprotein 68 mg/dL; Phosphorus 3.6 mg/dL (2.5-4.9); Potassium 4.1 mmol/L (3.5-5.1); Protein, Total 7.1 g/dL (6.4-8.2); Sodium Level 141 mmol/L (136-145); Triglycerides 178 mg/dL; Very Low Density Lipoprotein 36 mg/dL (5-40)
[2020-01-03 12:41] LABS: Carbamazepine (Tegretol) 12.7 ug/mL (4.0-12.0)
[2020-01-03 12:42] LABS: Hemoglobin A1c 6.1 % (4.2-6.3)
[2020-01-04 10:35] LABS: PTHIN 1.5 pg/mL (18.4-80.1)
== END ==
PROVIDERS: PCP Nurse Practitioner Family; Referring Provider Internal Medicine Nephrology; Visit Provider Internal Medicine Nephrology
DX: N18.3 Chronic kidney disease, stage 3 (moderate) (principal); E20.8 Other hypoparathyroidism; Z79.899 Other long term (current) drug therapy
CPT/HCPCS: 36415; 80053; 80061; 80156; 83036; 83970; 84100; 85025

== ENCOUNTER → 2020-02-05 10:10 | Outpatient (CLI) | payer MEDICARE, MEDICAID, SELFPAY ==
[2019-08-21 08:08] VITALS: BMI 46.1
--- NOTE | 2020-02-05 10:11 | RAD_ITS ---
STUDY: X-RAY - LEFT KNEE REASON FOR EXAM: Female, 49 years old. CHRONIC PAIN TECHNIQUE: 4 view(s) of the knee. COMPARISON: January 10, 2019 FINDINGS: Normal visualized distal femur. Normal visualized proximal tibia and fibula. Normal proximal tibiofibular articulation. There is severe degenerative arthrosis of the medial femorotibial compartment with severe joint space narrowing. Normal lateral femorotibial compartment. Normal patellofemoral articulation. Spurring superior pole patella. The soft tissue structures are unremarkable. RAD/Knee 4 or More Views IMPRESSION: Severe DJD medial tibiofemoral joint. Electronically Signed: John Duarte MD at 17:01 EDT , Service support ,
== END ==
PROVIDERS: PCP Nurse Practitioner Family; Referring Provider Physician Assistant; Visit Provider Physician Assistant
DX: M17.12 Unilateral primary osteoarthritis, left knee (principal)
CPT/HCPCS: 73564

== ENCOUNTER → 2020-07-04 09:01 | Outpatient (CLI) | payer MEDICARE, MEDICAID, SELFPAY ==
[2020-05-06 11:06] VITALS: BMI 46.1
[2020-06-05 09:15] VITALS: BMI 50.6
[2020-07-04 09:29] LABS: Albumin, Serum 3.6 g/dL (3.2-5.0); BUN 30 mg/dL (7-18); BUN/Creat Ratio 19.6 RATIO (10-20); Calcium,Total 10.5 mg/dL (8.5-10.1); Chloride 106 mmol/L (98-107); Creatinine, Serum 1.53 mg/dL (0.55-1.02); EST Glomerular Filtration Rate 38 mL/min (>60); Est Glom Filt Rate - Afr Amer 46 mL/min (>60); Glucose 103 mg/dL (74-106); Phosphorus 4.1 mg/dL (2.5-4.9); Potassium 4.3 mmol/L (3.5-5.1); Sodium Level 140 mmol/L (136-145)
== END ==
PROVIDERS: PCP Nurse Practitioner Family; Visit Provider Internal Medicine Nephrology
DX: N18.30 Chronic kidney disease, stage 3 unspecified (principal)
CPT/HCPCS: 36415; 80069

== ENCOUNTER → 2020-10-04 13:13 | Outpatient (CLI) | payer MEDICARE, MEDICAID, SELFPAY ==
[2020-08-14 11:34] VITALS: BMI 50.6
[2020-10-04 14:11] LABS: Albumin, Serum 3.4 g/dL (3.2-5.0); BUN 19 mg/dL (7-18); Calcium,Total 9.2 mg/dL (8.5-10.1); Chloride 106 mmol/L (98-107); Creatinine, Serum 1.19 mg/dL (0.55-1.02); EST Glomerular Filtration Rate 51 mL/min (>60); Est Glom Filt Rate - Afr Amer 61 mL/min (>60); Glucose 93 mg/dL (74-106); Phosphorus 3.2 mg/dL (2.5-4.9); Potassium 4.2 mmol/L (3.5-5.1); Sodium Level 140 mmol/L (136-145)
== END ==
PROVIDERS: PCP Nurse Practitioner Family; Visit Provider Internal Medicine Nephrology
DX: E83.52 Hypercalcemia (principal)
CPT/HCPCS: 36415; 80069; 82306

== ENCOUNTER → 2020-11-06 12:14 | Outpatient (CLI) | payer MEDICARE, MEDICAID, SELFPAY ==
[2020-06-05 09:15] VITALS: BMI 50.6
[2020-08-14 11:34] VITALS: BMI 50.6
[2020-11-06 13:52] LABS: Albumin, Serum 3.5 g/dL (3.2-5.0); BUN 20 mg/dL (7-18); BUN/Creat Ratio 17.4 RATIO (10-20); Calcium,Total 9.1 mg/dL (8.5-10.1); Chloride 105 mmol/L (98-107); Creatinine, Serum 1.15 mg/dL (0.55-1.02); EST Glomerular Filtration Rate 53 mL/min (>60); Est Glom Filt Rate - Afr Amer 64 mL/min (>60); Glucose 109 mg/dL (74-106); Potassium 4.2 mmol/L (3.5-5.1); Sodium Level 139 mmol/L (136-145)
== END ==
PROVIDERS: PCP Nurse Practitioner Family; Referring Provider Internal Medicine Nephrology; Visit Provider Internal Medicine Nephrology
DX: N18.32 Chronic kidney disease, stage 3b (principal)
CPT/HCPCS: 36415; 80069

== ENCOUNTER 2020-12-10 09:00 | Outpatient (RCR) | payer MEDICARE, MEDICAID, SELFPAY ==
[2020-08-14 11:34] VITALS: BMI 50.6
--- NOTE | 2020-11-12 09:38 | HP.PTEVAL ---
Patient's Visit Information NATALIYA TRACEY is a 50 year old F referred to Physical Therapy by Dr. Dimitris Van DO with a diagnosis of L KNEE OA. Date of Evaluation: 11/12/20 Physical Therapist: Whit Cuellar PT, Cert MDT - Visit Plan Frequency: 2-3x /Week Duration: 4-6 Weeks Plan: *RIGHT ANKLE INJURY BUT HERE FOR L KNEE OA*. PATIENT HAS [employer] AND CAN START [employer] POOL EX ONCE A WEEK WHEN APPROPRIATE. AQUATIC THERAPY FOR PAIN RELEIF, POSTURE CORRECTION/STRENGTHENING, INSTRUCTION IN APPROPRIATE BODY MECHANICS AND ACTIVITY MODIFICATIONS. DLS WITH A NEUTRAL SPINE. ELOY LE ROM, STRETCHING AND STRENGTHENING. HEP INSTRUCTION. - Subjective Work/Leisure: UNEMPLOYEED. Disability: ON DISABILITY FOR BIPOLAR. Present symptoms: LEFT KNEE PAIN - MAINLY MEDIAL. POPPING AND GRINDING L KNEE. Present since: ABOUT 3 YEARS. Pain Scale: WORST 8/10, LEAST 2/10. Currently: 2/10. Commenced as a result of: NO APPARENT REASON. Symptoms at onset: SAME. Worse: WALKING AND GOING UP STAIRS ARE THE WORST. Better: SITTING. Disturbed sleep: NO. Previous history/Previous treatment: ABOUT 10 CORTISONE INJECTIONS - THEY STOPPED WORKING. PATIENT REPORTS THIS LAST TIME THEY ALSO PUT GEL IN AND A STRONG CORTISONE INJECTION WITH SOME BENEFIT. ABOUT 3 YEARS AGO HAD L KNEE SURGERY BY DR. BAEZ BECAUSE THEY THOUGHT SHE HAD A MENISCUS TEAR BUT ENDED UP NOT HAVING ONE. SHE REPORTS THAT SURGERY HELPED FOR AWHILE. HAS HAD AQUATIC THERAPY IN THE PAST. Gait: USED A CANE UNTIL LAST CORTISONE SHOT ABOUT 6 WEEKS AGO. PATIENT REPORTS SHE STILL WALKS VERY SLOW AND VERY STIFF LEGGED. SHE REPORTS SHE HAS TO WALK VERY GINGERLY. Accidents: NO. Unexplained weight loss: NO. Imaging: STUDY: X-RAY - RIGHT KNEE AUG 2020. REASON FOR EXAM: Female, 50 years old. NO KNOWN INJURY. PAIN IN RIGHT. KNEE GETTING WORSE. TECHNIQUE: 4 view(s) of the knee. COMPARISON: 01/10/2019. FINDINGS: Normal visualized distal femur. Normal visualized proximal tibia and. fibula. Normal proximal tibiofibular articulation. There is mild degenerative arthrosis of the medial femorotibial. compartment. Normal lateral femorotibial compartment. There is mild. degenerative arthrosis of the patellofemoral articulation. The soft tissue structures are unremarkable. RAD/Knee 4 or More Views. IMPRESSION: Degenerative arthrosis. PMH: BIPOLAR, KIDNEY FAILURE, H/O THYROID CANCER, MAJOR SX RIGHT ANKLE ORIF 18 YEARS AGO. RECENTLY PULLED A LIGAMENT IN R ANKLE AND WEARS BRACE. OTHER: PATIENT REPORTS SHE TRIES TO WALK ABOUT ONCE A DAY AND CAN WALK ABOUT 1/4 MILE. STATES SHE IS TRYING TO BUILD UP TO BEING ABLE TO WALK ONE MILE. PATIENT REPORTS WEIGHT LOSS SURGERY IS PENDING IN ABOUT 6 WEEKS. - Objective THIS PATIENT AMBULATES INDEP'LY INTO PT LIMPING ON A STIFF L KNEE BUT NO LOB. GAIT IS SLOW AND ANTALGIC. SHE IS ABLE TO GET HER L KNEE FULLY STRAIGHT IN SUPINE AND ABLE TO BEND HER LEFT KNEE TO 96 DEG IN SUPINE WITH A HEEL SLIDE. SHE IS UE DEPENDENT TO TRANSFER FROM SIT TO STAND AND IT IS DIFFICULT FOR HER TO INITIATE GAIT AFTER SITTING. SHE IS UNABLE TO SLS ON THE L LE > 2-3 SEC. SLS ON THE RIGHT LE IS UNLIMITED. RIGHT LE STRENGTH IS 5/5 WITH MMT BUT R ANKLE INV/EVER NT. R ANKLE DORSIFLEX 5/5. LLE: HIP 4-/5, KNEE EXT 3+/5, KNEE FLEX 3-/5, ANKLE 5/5. TREATMENT: NEUROMUSCULAR REEDUCATION - RETRAINING OF MVMT AND POSTURE FOR SITTING, LYING AND STANDING ACTIVITIES. - Goals Goal 1:: DECREASE C/O L KNEE PAIN Goal Time Frame: 4-6 Weeks Goal 2:: INDEP AND SAFE GAIT WITH LEAST ASSISTIVE DEVICE ON LEVEL SURFACES AND UP AND DOWN STEPS WITH LEAST DEVIATIONS. Goal Time Frame: 4-6 Weeks Goal 3:: PATIENT WILL BE INDEP WITH A WATER EX PROGRAM FOR CONTINUED IMPROVEMENT ONCE FORMAL PHYSICAL THERPAY CONCLUDES. Goal Time Frame: 4-6 Weeks - Anticipated Interventions Patient/Client Instruction: Educate patient on: Condition, Plan of Care For the Purpose of:: To improve self management Therapeutic Exercise to Include: Strength training, Body mechanics, Postural training, Flexibilty training, Gait and locomotor training, Neuromotor development, In an aquatic setting, Dynamic Lumbar Stabilization For the Purpose of:: To decrease pain, To increase ROM, To improve muscle performance and motor function, To increase tolerance to activity/condition/position, To improve ability of physical actions for home/community/work/leisure, To improve gait and locomotor functions Thank you for the opportunity to evaluate your patient. For Medicare and Medicare HMO plans, please review the plan of care and approve it. It will need to be FAXED BACK to us at [phone] for Medicare purposes. For Medicare only, by signing this I certify the plan of care. Please let me know if there are questions or concerns regarding this plan of care. Physician Signature: Date:
--- NOTE | 2020-12-12 09:15 | HP.PT.NRP ---
NATALIYA TRACEY was seen in my office for initial evaluation on 11/12/20. The following Plan of Care was established for this patient: Initial Frequency: 2-3x /Week Initial Duration: 4-6 Weeks Patient/Client Instruction: Educate patient on: Condition, Plan of Care For the Purpose of:: To improve self management Therapeutic Exercise to Include: Strength training, Body mechanics, Postural training, Flexibilty training, Gait and locomotor training, Neuromotor development, In an aquatic setting, Dynamic Lumbar Stabilization For the Purpose of:: To decrease pain, To increase ROM, To improve muscle performance and motor function, To increase tolerance to activity/condition/position, To improve ability of physical actions for home/community/work/leisure, To improve gait and locomotor functions This patient was last seen in our office . Pertinent comments regarding their Physical therapy will appear below: This patient has not returned to Physical Therapy and is appropriate to return to MD for further follow-up as needed. At this point I will be discontinuing this patient from physical therapy. I would be happy to see this patient again in the future if found appropriate by the physician. Thank you! Whit Cuellar, PT, Cert MDT
== END 2020-12-10 19:00 | disposition home or self-care (01) ==
LOC: PT 09:00
PROVIDERS: PCP Nurse Practitioner Family; Referring Provider Orthopaedic Surgery; Visit Provider Orthopaedic Surgery
DX: M17.12 Unilateral primary osteoarthritis, left knee (principal)
CPT/HCPCS: 97112; 97113; 97162

== ENCOUNTER → 2021-07-23 12:24 | Outpatient (CLI) | payer MEDICARE, MEDICAID, SELFPAY ==
[2020-08-14 11:34] VITALS: BMI 50.6
[2021-07-23 13:30] LABS: Albumin, Serum 3.2 g/dL (3.2-5.0); BUN 16 mg/dL (7-18); BUN/Creat Ratio 16.1 RATIO (10-20); Calcium,Total 8.9 mg/dL (8.5-10.1); Chloride 106 mmol/L (98-107); EST Glomerular Filtration Rate 62 mL/min (>60); Est Glom Filt Rate - Afr Amer 75 mL/min (>60); Glucose 88 mg/dL (74-106); Phosphorus 3.4 mg/dL (2.5-4.9); Potassium 4.5 mmol/L (3.5-5.1); Sodium Level 138 mmol/L (136-145)
== END ==
PROVIDERS: PCP Nurse Practitioner Family; Visit Provider Internal Medicine Nephrology
DX: N18.32 Chronic kidney disease, stage 3b (principal)
CPT/HCPCS: 36415; 80069

== ENCOUNTER → 2022-12-22 | Outpatient (CLI) | payer MEDICARE, SELFPAY ==
[2022-12-22 15:05] LABS: Albumin, Serum 3.6 g/dL (3.2-5.0); BUN 20 mg/dL (7-18); BUN/Creat Ratio 23.2 RATIO (10-20); Calcium,Total 9.2 mg/dL (8.5-10.1); Chloride 109 mmol/L (98-107); Creatinine, Serum 0.86 mg/dL (0.55-1.02); EST Glomerular Filtration Rate 73 mL/min (>60); Est Glom Filt Rate - Afr Amer 88 mL/min (>60); Glucose 85 mg/dL (74-106); Phosphorus 3.9 mg/dL (2.5-4.9); Potassium 4.4 mmol/L (3.5-5.1); Sodium Level 138 mmol/L (136-145)
== END | disposition home or self-care (01) ==
LOC: LAB 13:56
PROVIDERS: PCP Nurse Practitioner Family; Referring Provider Internal Medicine Nephrology; Visit Provider Internal Medicine Nephrology
DX: N18.32 Chronic kidney disease, stage 3b (principal)
CPT/HCPCS: 36415; 80069

== ENCOUNTER 2023-09-14 22:22 | Emergency (ER) | payer MEDICARE, MEDICAID, SELFPAY ==
[2023-09-14 22:23] VITALS: BP 125/87; PULSE 54; RESP 16; TEMP 36.4; O2SAT 99; BMI 39.1
[2023-09-14] MEDS: 0.9% Normal Saline (1000mL) 1,000 ML 999 ML IV (23:34)
--- NOTE | 2023-09-14 23:35 | EKG12_ITS ---
Test Reason : DYSRHYTHMIA Blood Pressure : / mmHG Vent. Rate : 050 BPM Atrial Rate : 050 BPM P-R Int : 188 ms QRS Dur : 092 ms QT Int : 438 ms P-R-T Axes : 039 020 063 degrees QTc Int : 399 ms Sinus bradycardia Otherwise normal ECG Confirmed by ELIA RINALDI, TINA ([id number]), assistant production editor GEETHA HEARN ([id number]) on 09/15/2023 9:15:23 AM Referred By: Confirmed By:TINA RODRIGEZ MD
--- NOTE | 2023-09-14 23:48 | EDS_ITS ---
HPI History of Present Illness Chief Complaint: Fatigue Informant: patient Narrative Narrative: 53-year-old female presents with 3 days of I do not feel well. She has had some lightheadedness. She has a history of PVCs for which she is on metoprolol succinate 25 mg daily, she continues to occasionally feel PVCs but that is not new in the last several days. She had rhinorrhea, and some nausea yesterday but no vomiting. Not today. Denies abdominal or chest pain, no dyspnea, and no other new URI symptoms. She has had periods where she has felt hot and cold, sweaty, unknown if she had any fevers or not today because she did not check. She states for the past 2 months she has been bradycardic at times in the 30s and feeling lightheadedness regarding this. She states I have seen multiple doctors including family doctor, addiction medicine, and she has been referred to cardiology and is seeing them 3 days from [facility]. She states no one has changed the metoprolol that she has been taking for years. She states today she has been checking her heart rate and it was in the 50s. [facility] Medical History Acute pharyngitis Anxiety disorder Asthma Bipolar 1 disorder Bipolar disorder Chest pain Gastric reflux Hypothyroidism Morbid obesity with BMI of 45.0-49.9, adult Thyroid disease Home Medications alprazolam 1 mg tablet 1 mg PO BID 04/07/16 [History Last Taken 04/09/16 07:30] bupropion HCl 150 mg tablet,12 hr sustained-release 150 mg PO DAILY 04/07/16 [H istory Last Taken 04/09/16 07:30] carbamazepine 200 mg tablet 600 mg PO BID 04/07/16 [History Last Taken 04/09/16 07:30] levothyroxine 200 mcg tablet 200 mcg PO SUTUTH 04/07/16 [History Last Taken 12/20 07:30] levothyroxine 200 mcg tablet 300 mcg PO MOWEFRSA 04/07/16 [History Last Taken Unknown] olanzapine 10 mg tablet 15 mg PO QHS 04/07/16 [History Last Taken Unknown] paroxetine HCl 40 mg tablet 40 mg PO QHS 04/07/16 [History Last Taken Unknown] albuterol sulfate 90 mcg/actuation aerosol inhaler 1 - 2 puff inhalation Q4H PRN PRN Shortness Of Breath ##1 08/16/17 [Rx Last Taken Unknown] cholecalciferol (vitamin D3) 50 mcg (2,000 unit) capsule 2,000 unit PO DAILY 12/20/17 [History Last Taken Unknown] calcitriol 0.25 mcg capsule 0.5 mcg PO DAILY 08/16/20 [History Last Taken Unknown] lamotrigine 200 mg tablet 200 mg PO DAILY 08/16/20 [History Last Taken Unknown] metoprolol succinate 25 mg tablet,extended release 24 hr ea PO 08/16/20 [History Last Taken Unknown] Allergy/AdvReac Type Severity Reaction Status Date / Time No Known Allergies Allergy Verified 09/14/23 22:25 Family History Mother Cancer Surgical History h/o ankle surger H/O tubal ligation History of cholecystectomy S/P left knee arthroscopy Social History Smoking Status: Former smoker second hand exposure: No alcohol intake: current substance use type: does not use ROS ROS ED Constitutional Constitutional ED: Reports chills, fever(s), malaise, subjective and sweats Eyes Eyes: Denies change in vision or diplopia ENT ENT ED: Reports rhinorrhea; Denies sore throat Cardiovascular Cardiovascular: Denies chest pain or palpitations Respiratory/Chest Respiratory/Chest: Reports cough; Denies dyspnea Gastrointestinal Gastrointestinal: Reports nausea; Denies abdominal pain, diarrhea or vomiting Genitourinary Genitourinary ED: Denies dysuria or hematuria Musculoskeletal Musculoskeletal: Denies back pain or neck pain Integumentary Denies abscess or rash Neurologic Neurologic: Denies headache(s), paresthesias or weakness Psychiatric Psychiatric: Denies suicidal ideation or suicidal thoughts EXAM Physical Exam Const Vital Signs: 09/14/23 22:23 09/15/23 00:04 Temperature 97.5 F L Temperature Source Temporal Pulse Rate 54 L Respiratory Rate 16 Respiratory Effort Normal Non-Labored Respiratory Pattern Normal Blood Pressure 125/87 H Blood Pressure Mean 99 Pulse Ox 99 Oxygen Delivery Method Room Air Positive well nourished and well developed Constitutional Narrative: Well-appearing. Conversive in full sentences. General Appearance ED: well developed and NAD HEENT Reports moist mucous membranes normocephalic and atraumatic Eyes PERRL and EOMs intact bilaterally Neck full ROM, no lymphadenopathy and supple Resp normal respiratory effort and clear to auscultation bilaterally Cardio regular rate, regular rhythm and no murmurs Rate: Negative for bradycardia or tachycardic GI non-tender and non-distended Auscultation: normoactive bowel sounds Palpation: soft Back/Spine no CVA tenderness General Back: other FROM Extremity normal to inspection General Extremety ED: Negative for edema, pulses abnormal or tenderness General Extremity: Negative for edema or pulses abnormal Neuro oriented x3, CN's II-XII intact bilaterally and no sensory deficits noted Sensorium / Orientation: awake and alert Motor Exam: strength 5/5 throughout Psych Mood & Affect: anxious Skin no rashes or lesions noted and no wounds MDM MDM MDM Narrative Medical decision making narrative: Patient has nonspecific symptoms in the differential is wide. She currently is not bradycardic and her vital signs are normal. She presents when there are a lot of viral illnesses prevalent in the community, including but not exclusive of COVID, influenza, and RSV. I did send a PCR for those 3 it was negative. I obtained an EKG which is normal with a heart rate of 50, and the rest of her labs are normal showing no anemia, signs of myocardial injury, or renal insult or electrolyte deficiency. Patient is reassured, advised to drink plenty fluids and follow-up with her associate entertainment editor with whom she has an appointment in 3 days. Under typical circumstances if her heart rate had been in the 30s I would recommend discontinuing her Toprol. However since she has been on it a long time, and should not necessarily stop it suddenly, and since her heart rate is in the 50s here, and her dose is low and it is sustained release I recommend consulting with cardiology as scheduled before altering this medication. Additionally she asked for a work note for tomorrow because she is feeling poorly. Lab Data Attestation: I reviewed the patient's lab results. Labs: Laboratory Results - last 24 hr 09/14/23 23:55 WBC 7.2 RBC 4.32 Hgb 13.6 Hct 40.1 MCV 92.8 MCH 31.5 MCHC 33.9 RDW Std Deviation 39.5 RDW Coeff of Betsy 11.5 L Plt Count 304 MPV 9.2 Immature Gran % (Auto) 0.300 Neut % (Auto) 47.4 Lymph % (Auto) 39.2 Burke % (Auto) 5.4 Eos % (Auto) 6.9 H Baso % (Auto) 0.8 Absolute Neuts (auto) 3.4 Absolute Lymphs (auto) 2.84 Nucleated RBC % 0 Sodium 142 Potassium 3.7 Chloride 111 H Carbon Dioxide 26.0 Anion Gap 5 BUN 16 Creatinine 0.81 Estim Creat Clear Calc 110.05 Est GFR (MDRD) Af Amer 95 Est GFR (MDRD) Non-Af 79 BUN/Creatinine Ratio 19.8 Glucose 87 Calcium 9.0 Troponin I High Sens 5 Rhythm Strip Rhythm Strip: Sinus Rhythm Rate: 50 Ectopy: None EKG Initial EKG: Attestation: I personally reviewed and interpreted this EKG as follows: Interpretation: Sinus Rhythm and No Acute Injury Pattern Comments: Normal EKG no AV block Discharge Plan Triage Chief Complaint: Fatigue ED Provider: Natanael Gaitan Dx/Rx/DC Orders Clinical Impression: Malaise, Bradycardia Instructions: ED Bradycardia Prescriptions: No Action lamotrigine 200 mg tablet 200 mg PO DAILY metoprolol succinate 25 mg tablet extended release 24 hr PO Patient Comments: take 1 tablet by mouth once daily bupropion HCl 150 MG tablet sustained-release 12 hr 150 mg PO DAILY alprazolam 1 MG tablet 1 mg PO BID olanzapine 10 MG tablet 15 mg PO QHS carbamazepine 200 MG tablet 600 mg PO BID levothyroxine 200 MCG tablet 300 mcg PO MOWEFRSA levothyroxine 200 MCG tablet 200 mcg PO SUTUTH paroxetine HCl 40 MG tablet 40 mg PO QHS calcitriol 0.25 mcg capsule 0.5 mcg PO DAILY albuterol sulfate 1 INHALER inhaler 1 - 2 puff inhalation Q4H PRN PRN (Reason: Shortness Of Breath) Qty: 1 0RF cholecalciferol (vitamin D3) 2,000 UNIT capsule 2,000 unit PO DAILY Stand Alone Forms: ED Work / School Excuse Primary Care Provider: Umair Gates NP Referrals: Umair Gates MANAGER SEARCH ENGINE, MANAGER SEARCH ENGINE-C [Primary Care Provider] - (And/or cardiology, as scheduled) Activity Restrictions/Additional Instructions: Check your heart rate every morning before you take your Toprol XL; if you are in the 30s or below, do not take it that day. Disposition Disposition: Home, Self Care
[2023-09-15 00:02] LABS: Absolute Lymphocyte Count 2.84 X10^3/uL (0.83-4.51); Absolute Neutrophil Count 3.4 X10^3/uL (2.0-7.7); Basophil# 0.06 X10^3/uL; Basophil% 0.8 % (0-1); Eosinophils% 6.9 % (0-5); Hematocrit 40.1 % (37-47); Hemoglobin 13.6 g/dL (12.0-15.0); Lymphocyte # 2.84 X10^3/ul (0.83-4.51); Lymphocyte % 39.2 % (19-41); Mean Corp Hgb Conc 33.9 g/dL (32-36); Mean Corpuscular Hgb 31.5 pg (27.0-32.0); Mean Corpuscular Volume 92.8 fL (81-99); Mean Platelet Vol. 9.2 fl (6.2-12.0); Monocyte# 0.39 X10^3/uL; Monocyte% 5.4 % (0-10); NRBC Flagged by Analyzer 0 % (0-5); Neutrophil # 3.43 X10^3/uL (2.7-7.7); Neutrophil % 47.4 % (47-70); Platelet Count 304 K/mm3 (150-450); RBC Distribution Width CV 11.5 % (11.6-14.6); RBC Distribution Width SD 39.5 fl (35.1-43.9); Red Blood Count 4.32 M/mm3 (4.2-5.4); White Blood Count 7.2 K/mm3 (4.4-11.0)
[2023-09-15 00:26] LABS: Anion Gap 5 (5-15); BUN 16 mg/dL (7-18); BUN/Creat Ratio 19.8 RATIO (10-20); Chloride 111 mmol/L (98-107); Creatinine, Serum 0.81 mg/dL (0.55-1.02); EST Glomerular Filtration Rate 79 mL/min (>60); Est Glom Filt Rate - Afr Amer 95 mL/min (>60); Estimated Creatinine Clearance 110.05 ml/min; Glucose 87 mg/dL (74-106); Potassium 3.7 mmol/L (3.5-5.1); Sodium Level 142 mmol/L (136-145); Troponin-I HS 5 pg/mL (3.0-54.0)
[2023-09-15 01:17] VITALS: BP 108/65; PULSE 52; RESP 12; TEMP -8.8; TEMP 16; O2SAT 100
== END 2023-09-15 01:21 | disposition home or self-care (01) ==
PROVIDERS: Emergency Provider Emergency Medicine; PCP Nurse Practitioner Family; Visit Provider Emergency Medicine
DX: R53.81 Other malaise (principal); R00.1 Bradycardia, unspecified; Z87.891 Personal history of nicotine dependence
CPT/HCPCS: 80048; 84484; 85025; 87631; 93005; 99284; J7030; A4216

== ENCOUNTER → 2024-01-11 | Outpatient (CLI) | payer MEDICARE, SELFPAY ==
[2024-01-11 10:28] LABS: Hematocrit 38.6 % (37-47); Hemoglobin 12.6 g/dL (12.0-15.0); Mean Corp Hgb Conc 32.6 g/dL (32-36); Mean Corpuscular Volume 94.8 fL (81-99); Mean Platelet Vol. 9.6 fl (6.2-12.0); Platelet Count 296 K/mm3 (150-450); RBC Distribution Width CV 12.1 % (11.6-14.6); RBC Distribution Width SD 42.2 fl (35.1-43.9); Red Blood Count 4.07 M/mm3 (4.2-5.4); White Blood Count 6.8 K/mm3 (4.4-11.0)
[2024-01-11 11:08] LABS: Albumin, Serum 3.3 g/dL (3.2-5.0); BUN 18 mg/dL (7-18); BUN/Creat Ratio 17.8 RATIO (10-20); Calcium,Total 8.4 mg/dL (8.5-10.1); Chloride 110 mmol/L (98-107); Creatinine, Serum 1.01 mg/dL (0.55-1.02); EST Glomerular Filtration Rate 61 mL/min (>60); Est Glom Filt Rate - Afr Amer 73 mL/min (>60); Glucose 116 mg/dL (74-106); Phosphorus 3.5 mg/dL (2.5-4.9); Potassium 4.2 mmol/L (3.5-5.1); Sodium Level 140 mmol/L (136-145)
== END | disposition home or self-care (01) ==
PROVIDERS: PCP Nurse Practitioner Family; Referring Provider Internal Medicine Nephrology; Visit Provider Internal Medicine Nephrology
DX: N18.2 Chronic kidney disease, stage 2 (mild) (principal); D64.9 Anemia, unspecified
CPT/HCPCS: 36415; 80069; 85027